=== PATIENT | female | born 1995 | race Caucasian/White ===

== ENCOUNTER 2017-08-30 17:40 | Inpatient (IN) | payer OTHER ==
[~2017-08-30] VITALS: Wt 85.5 kg
[2017-08-30] VITALS (12 sets, daily range): BP systolic 111–157; BP diastolic 54–93; PULSE 69–99; TEMP 98.8
[2017-08-30] MEDS ORDERED: PRENATAL MVI (17:45)
[2017-08-30 18:13] LABS: HEMATOCRIT 38.1 % (37.0-47.0); HEMOGLOBIN 12.9 g/dl (12.5-16.0); MEAN CELL VOLUME 85 fl (80.0-100.0); MEAN CORPUSCULAR HEMOGLOBIN 29 pg (27.0-31.0); MEAN CORPUSCULAR HGB CONC 34 g/dl (33.0-37.0); MEAN PLATELET VOLUME 10.4 fl (7.4-10.4); PLATELET COUNT 324 K/mm3 (130-400); RED BLOOD COUNT 4.48 M/mm3 (4.10-5.30); REDCELL DISTRIBUTION WIDTH-CV 13.5 % (11.5-14.5)
[2017-08-30 18:18] LABS: INR 0.9 (0.8-3.0); PROTHROMBIN TIME 10.8 SECONDS (9.7-12.8)
[2017-08-30 18:21] LABS: PARTIAL THROMBOPLASTIN TIME 24.2 SECONDS (26.0-37.0)
[2017-08-30 18:28] LABS: ALBUMIN 3.3 gm/dL (3.5-5.0); BILIRUBIN,TOTAL 0.2 mg/dL (0.0-1.0); CALCIUM 9.3 mg/dL (8.4-10.2); CREATININE, serum 0.54 mg/dL (0.52-1.25); POTASSIUM 4.4 mmol/L (3.4-5.0); TOTAL PROTEIN 6.7 gm/dL (6.4-8.2)
[2017-08-30 18:39] LABS: BAND 8 % (0-10); EOSINOPHIL 1 % (0-4); LYMPHOCYTE 21 % (20.0-51.0); NEUTROPHILS 66 % (42.0-75.2); PLATELET ESTIMATE NORMAL (NORMAL)
[2017-08-30 22:47] LABS: UMBILICAL ARTERY ABG PCO2 69.7 mmHg (30-65); UMBILICAL ARTERY ABG pH 7.13 (7.28-7.45)
[2017-08-31] VITALS: BP 142/80; PULSE 88
[2017-08-31 00:30] VITALS: BP 134/78; PULSE 83
[2017-08-31 01:00] VITALS: BP 143/83; PULSE 78; TEMP 98.6
[2017-08-31 02:00] VITALS: BP 142/78; PULSE 76
[2017-08-31 06:46] LABS: BASO # 0.1 (0.0-0.2); BASO % 0.4 % (0.0-2.0); EOS % 0.2 % (0-4.0); GRAN # 13.3 (1.4-6.5); LYMPH # 2.5 (1.2-3.4); LYMPH % 14.4 % (20.0-51.0); MEAN CELL VOLUME 86 fl (80.0-100.0); MEAN CORPUSCULAR HGB CONC 34 g/dl (33.0-37.0); MEAN PLATELET VOLUME 10.4 fl (7.4-10.4); MONO # 1.2 (0.1-0.6); PLATELET COUNT 256 K/mm3 (130-400); RED BLOOD COUNT 3.54 M/mm3 (4.10-5.30); REDCELL DISTRIBUTION WIDTH-CV 13.4 % (11.5-14.5)
[2017-08-31 06:49] LABS: HEMATOCRIT 30.4 % (37.0-47.0); HEMOGLOBIN 10.2 g/dl (12.5-16.0); MEAN CORPUSCULAR HEMOGLOBIN 29 pg (27.0-31.0)
[2017-08-31 08:00] VITALS: BP 137/82; PULSE 74; TEMP 97.9
[2017-08-31 20:00] VITALS: BP 133/85; PULSE 74; TEMP 98.6
[2017-09-01 07:00] VITALS: BP 133/82; PULSE 79; TEMP 97.6
[2017-09-01 08:31] VITALS: BP 133/82; PULSE 79; TEMP 97.6
[2017-09-01] MEDS ORDERED: IBU600 MG PO ×3 (08:52→08:54)
[2017-09-01] MEDS ORDERED: PERCOCET 325 MG1 TA3 PO (08:53)
[2017-09-01 16:51] VITALS: BP 114/66; PULSE 78; TEMP 98.2
[2017-09-01 20:45] VITALS: BP 143/76; PULSE 83; TEMP 98.7
[2017-09-02 08:30] VITALS: BP 138/86; PULSE 81; TEMP 98.2
[2017-09-02] MEDS ORDERED: PERCOCET 325 MG1 TA2 PO (13:27)
== END 2017-09-02 14:40 | disposition home or self-care (01) | DRG 765 ==
LOC: COL.ER 17:40 → LDRO 17:41 → COL.ER 19:49 → EDSTATUS 19:52 → OB 21:15 → LDR 21:15 → OB 08-31 00:20
PROVIDERS: Emergency Medicine; Obstetrics & Gynecology
PROC: 10D00Z1 Extraction of Products of Conception, Low, Open Approach (ICD-10-PCS; principal; 2017-08-30)
DX: O76 Abnormality in fetal heart rate and rhythm complicating labor and delivery (principal); D62 Acute posthemorrhagic anemia; O99.02 Anemia complicating childbirth; S30.1XXA Contusion of abdominal wall, initial encounter; S20.212A Contusion of left front wall of thorax, initial encounter; S16.1XXA Strain of muscle, fascia and tendon at neck level, initial encounter; Z3A.38 38 weeks gestation of pregnancy; Z37.0 Single live birth; V43.54XA Car driver injured in collision with van in traffic accident, initial encounter
CPT/HCPCS: J0690; J1885; J2270; J2370; J2405; J2590; J7120

== ENCOUNTER → 2019-06-08 | Outpatient (CLI) | payer OTHER ==
[~2019-06-08] MED LIST: IBU600 MG PO; PERCOCET 325 MG1 TA2 PO; PERCOCET 325 MG1 TA3 PO; PRENATAL MVI
== END ==
LOC: COL.RAD 06-02 08:45
DX: M25.551 Pain in right hip (principal)
CPT/HCPCS: J3301; Q9967

== ENCOUNTER → 2019-09-18 | Outpatient (CLI) | payer OTHER | LOC: COL.RAD 12:38 | DX: M25.552 Pain in left hip (principal) | CPT/HCPCS: J3301; Q9967 ==